=== PATIENT | female | born 1930 | race Caucasian/White ===

== ENCOUNTER 2016-12-04 07:21 | Day surgery (SDC) | payer MEDICARE ==
[~2016-12-04 07:21] MED LIST: FENTANYL 250 MCG/5 ML AMP IV PRN; IV START KIT ONE; LACTATED RINGERS 1,000 ML IV SCH; MIDAZOLAM HCL 5 MG/5 ML VIAL IV PRN
--- NOTE | 2016-12-05 12:37 | SURGPATH ---
[facility] [address] [place] [address] Patient Name: ROSA FONSECA MR#: [id number] : 1930 Gender: F Specimen #: [id number] Collected: 12/04/2016 Received: 12/04/2016 Reported: 12/05/2016 Submitting Phys: CINTHIA IRVING Copy To Phys: [facility] AMEENA YANCEY Clinical History / Pre-Operative Diagnosis: Abnormal CAT scan; periumbilical pain; change in bowel pattern; history of polypectomy; rule out CA Specimen Source / Surgical Procedure Performed: DISTAL TRANSVERSE COLON MASS BIOPSY HIGH PRIORITY DIAGNOSIS. REQUIRES CLINICAL ATTENTION Interpretation: DISTAL TRANSVERSE COLON, BIOPSY: - ADENOCARCINOMA Electronically Signed Out Anabel Nielson M.D. Gross Description: The specimen is received in a formalin filled container labeled with the patient's name and "biopsy of distal transverse colon mass". Six pink biopsies are 0.2-0.4 cm. Totally embedded in one cassette. Moise Alves PSholaAShola Microscopic Description: Sections show multiple fragments of colonic mucosa. There are areas of surface high-grade dysplasia and one fragment shows infiltrative atypical glands and small nests of cells with a surrounding desmoplastic stroma, representing invasive adenocarcinoma. 1: [id number] C18.4
--- NOTE | 2016-12-06 07:34 | PROCNOTE ---
Brigida Pinon : 1930 DATE: 12/06/2016 This 86-year-old female patient within the practice of Dr. James Anna underwent colonoscopy on December 04 for progressive incomplete evacuation with defecation and periumbilical pain prior to defecation and a CAT scan showing irregularities of the sigmoid colon and potential intraabdominal adenopathy. The colonoscopy on December 04 demonstrated an obstructing lesion in the mid transverse colon. The proximal colon could not be seen because of this. 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 The patient has been contacted and informed as to these results. A surgical referral is recommended and she agrees. The patient is being sent to Dr. Jan Lora. Medical follow up will be by Dr. James Hill. JOB: [id number] CC: Dr. James Lora
== END 2016-12-04 09:23 | disposition home or self-care (01) ==
LOC: SDC 07:21
PROVIDERS: ATTEND Internal Medicine Gastroenterology
PROC: 0DBL8ZX Excision of Transverse Colon, Via Natural or Artificial Opening Endoscopic, Diagnostic (ICD-10-PCS; principal; 2016-12-04)
DX: C18.4 Malignant neoplasm of transverse colon (principal); I10 Essential (primary) hypertension; R12 Heartburn; Z87.891 Personal history of nicotine dependence; Z88.0 Allergy status to penicillin; Z88.1 Allergy status to other antibiotic agents; Z88.8 Allergy status to other drugs, medicaments and biological substances; Z86.010 Personal history of colon polyps
CPT/HCPCS: 45380; J3010; J2250; J7120

== ENCOUNTER 2016-12-13 10:38 | Inpatient (IN) | payer MEDICARE ==
[2017-01-30] MEDS ORDERED: BUPIVACAINE 0.5% W/EPI SDV 30 ML VIAL ONE (08:18)
[2017-01-30] MEDS ORDERED: IV START KIT ONE (08:32)
[2017-01-30] MEDS ORDERED: LACTATED RINGERS 1,000 ML ONE (08:32)
[2017-01-30] MEDS ORDERED: ERTAPENEM SODIUM 1 G in NS 0.9% (MINI-BAG PLUS) 50 ML IV PRN (09:00)
[2017-01-30] MEDS ORDERED: GABAPENTIN 600 MG TABLET ONE (10:09)
[2017-01-30] MEDS ORDERED: CELECOXIB 200 MG CAPSULE ONE (10:09)
[2017-01-30] MEDS ORDERED: ACETAMINOPHEN 500 MG TABLET ONE (10:09)
[2017-01-30] MEDS ORDERED: ROCURONIUM BROMIDE 10 MG/ML DOSE IV ONE ×11 (11:13→13:58)
[2017-01-30] MEDS ORDERED: PROPOFOL 20 ML IV ONE (11:13)
[2017-01-30] MEDS ORDERED: LIDOCAINE 2% (MULTI DOSE) 10 ML VIAL ONE (11:13)
[2017-01-30] MEDS ORDERED: SODIUM CHLORIDE 0.9% 100 ML IV ONE (11:14)
[2017-01-30] MEDS ORDERED: PHENYLEPHRINE 10 MG/1 ML (1%) VIAL ONE (11:14)
[2017-01-30] MEDS ORDERED: FENTANYL 250 MCG/5 ML AMP ONE (11:16)
[2017-01-30] MEDS ORDERED: KETAMINE HCL UD SYRINGE 100 MG/2 ML IV ONE (11:21)
[2017-01-30] MEDS ORDERED: ACETAMINOPHEN 500 MG TABLET PO PRN (11:45)
[2017-01-30] MEDS ORDERED: CELECOXIB 200 MG CAPSULE PO PRN (11:45)
[2017-01-30] MEDS ORDERED: GABAPENTIN 600 MG TABLET PO PRN (11:45)
[2017-01-30] MEDS ORDERED: DEXAMETHASONE SOD PHOS 4 MG/1 ML VIAL ONE (11:58)
[2017-01-30] MEDS ORDERED: EPHEDRINE SULFATE UD SYR 25 MG 25 MG/5 ML SYRINGE IV ONE (11:59)
[2017-01-30] MEDS ORDERED: HYDROMORPHONE HCL 2 MG/ML SYRINGE ONE (13:01)
[2017-01-30] MEDS ORDERED: NEOSTIGMINE METHYLSULFATE 1 MG/ML DOSE ONE (15:30)
[2017-01-30] MEDS ORDERED: GLYCOPYRROLATE 0.2 MG/ML 1ML VIAL ONE (15:30)
[2017-01-30] MEDS ORDERED: ONDANSETRON 4 MG/2ML 2 ML VIAL ONE (15:38)
[2017-01-30] MEDS ORDERED: ONDANSETRON 4 MG/2ML 2 ML VIAL IV PRN ×2 (15:43→18:15)
[2017-01-30] MEDS ORDERED: MEPERIDINE 25 MG/ML SYRINGE IV PRN (15:43)
[2017-01-30] MEDS ORDERED: NALOXONE HCL 0.4 MG/ML VIAL IV PRN (15:43)
[2017-01-30] MEDS ORDERED: HYDRALAZINE HCL 20 MG/1 ML VIAL IV PRN (15:43)
[2017-01-30] MEDS ORDERED: ATROPINE SULFATE 0.4 MG/1 ML VIAL IV PRN (15:43)
[2017-01-30] MEDS ORDERED: LABETALOL HCL 5 MG/ML 20ML VIAL IV PRN (15:43)
[2017-01-30] MEDS ORDERED: PROMETHAZINE HCL 25 MG/ML VIAL IM PRN (15:43)
[2017-01-30] MEDS ORDERED: HYDROMORPHONE HCL 1 MG/ML SYRINGE IV PRN (15:43)
[2017-01-30] MEDS ORDERED: LACTATED RINGERS 1,000 ML IV SCH (15:45)
[2017-01-30] MEDS ORDERED: FENTANYL 100 MCG/2 ML VIAL ONE (17:20)
[2017-01-30] MEDS: FENTANYL 100 MCG/2 ML VIAL IV PRN ×4 (17:21→18:04)
[2017-01-30] MEDS ORDERED: DIPHENHYDRAMINE HCL 25 MG CAPSULE PO PRN (18:15)
[2017-01-30] MEDS ORDERED: BLISTEX LIPSTICK 1 EACH TP PRN (18:15)
[2017-01-30] MEDS ORDERED: MENTHOL/CETYLPYRD 1 EACH LOZENGE PO PRN (18:15)
[2017-01-30] MEDS ORDERED: MORPHINE SULFATE 4 MG/ML SYRINGE IV PRN (18:33)
[2017-01-30] MEDS ORDERED: PUMP TUBING ONE (19:12)
[2017-01-30] MEDS: D5 1/2NS with 20 mEq KCL 1,000 ML IV SCH (19:18)
[2017-01-30] MEDS: MORPHINE SULFATE 2 MG/ML SYRINGE IV PRN ×5 (19:24→23:24)
[2017-01-30 20:32] VITALS: BMI 24.5
[2017-01-30] MEDS: ACETAMINOPHEN 500 MG TABLET PO SCH ×2 (20:46→23:25)
[2017-01-30] MEDS: GABAPENTIN 600 MG TABLET PO SCH ×2 (20:58→23:25)
[2017-01-30] MEDS: PANTOPRAZOLE 40 MG TABLET DR PO SCH (20:59)
[2017-01-30] MEDS: KETOROLAC TROMETHAMINE 30 MG/ML 1 ML VIAL IV PRN (23:25)
[2017-01-31] MEDS ORDERED: SODIUM CHLORIDE 0.9% 500 ML IV SCH ×2 (04:09→08:15)
[2017-01-31] MEDS: MORPHINE SULFATE 2 MG/ML SYRINGE IV PRN (04:40)
[2017-01-31] MEDS: ACETAMINOPHEN 500 MG TABLET PO SCH ×4 (06:10→23:17)
[2017-01-31 06:46] LABS: HEMOGLOBIN 10.9 gm/l (12.0-16.0); MEAN CELL VOLUME 93.9 fl (81.0-99.0); MEAN CORPUSCULAR HEMOGLOBIN 30.1 pg (27.0-31.0); MEAN CORPUSCULAR HGB CONC 32.1 g/dl (33.0-37.0); RED CELL DISTRIBUTION WIDTH 14.3 % (11.5-14.5)
[2017-01-31 07:07] LABS: ALB/GLOB RATIO 1.6 (>1.0); ALBUMIN 2.9 gm/dL (3.5-5.7); CALCIUM 7.7 mg/dL (8.6-10.3)
--- NOTE | 2017-01-31 07:31 | OP ---
Brigida Pinon [id number] DATE OF SURGERY: 01/30/2017 PREOPERATIVE DIAGNOSIS: Sigmoid colon cancer. POSTOPERATIVE DIAGNOSIS: Sigmoid colon cancer. PROCEDURE: Laparoscopic low anterior resection. SURGEON: Jan Lora M.D. DISTRIBUTION ASSOCIATE: Lj. ANESTHESIA: [place], General endotracheal. INDICATION: This is an 86-year-old female who was found to have obstructing colon cancer. It was thought to be in the possible transverse colon. On CT scan it appeared to be in the sigmoid colon. She presents for elective colectomy. She has no evidence of metastatic disease on CT. DESCRIPTION: With informed consent she was taken to the operating room where she was laid supine on the operating room table. General endotracheal anesthetic was administered. Legs were placed in Carlos stirrups. Arms were tucked. Pressure points were padded. A Daniel catheter was placed. The abdomen and peritoneal area were prepped and draped in a usual fashion. Local anesthetic was administered below the umbilicus and a vertical incision was made. We dissected down to the fascia. This was grasped with Selene clamps, divided with curvilinear scissors. Suture of a Vicryl replacing all fascial edges and a Aguilera port was placed. A pneumoperitoneum was created. General survey of the abdomen revealed no evidence of metastatic disease in the liver or peritoneal surfaces. The tumor was not immediately evident. I put some local anesthetic in the right lower quadrant and made an incision. A 12 mm port was placed. We ended up putting a 5 mm port in the suprapubic region. Patient was placed in a steep Trendelenburg position and turned to the right. The small bowel was pulled up and out of the pelvis. There was one area where we had to dissect some small bowel that was adhesed to the right pelvic wall. The mass was not evident in the sigmoid colon. It did appear that the sigmoid colon actually looped on itself a couple of times down into the pelvis most likely from adhesions from prior surgery. I wanted to clearly define where the tumor was before I divided the vascular pedicle. Because of this, I approached the colon from a lateral aspect and mobilized it to the midline using the Ligasure and peanut dissection. This was carried down into the pelvis. There was two basic S-turns that had to be freed up. It appeared that one of the curves was adherent to the reminants of her round ligament or Fallopian tube. This was divided using the Ligasure. Eventually, I decided to exchange the suprapubic port site for a gel port. Local anesthetic was administered in the skin. A transverse pfannenstiel incision was made. Electrocautery was used to divide the subcutaneous fat. Anterior rectus fascia was opened. It appeared that her muscles were actually more to the left than usual because of a prior paramedian incision. I lifted the anterior rectus fascia off of the rectus muscles above and below. I incised the peritoneum entering the peritoneal cavity. The wound retractor part of the port was placed and a gel port placed. Using the hand I could palpate the sigmoid colon and found an area of palpable abnormality where it had made a turn attached to the left round ligament or Fallopian tube. I was more confident that this was the location of her tumor. I actually had to dissect down further to mobilize the distal sigmoid. I actually had to get down below the peritoneal reflection that was quite floppy and distorted because of prior hysterectomy. The vascular pedicle to the sigmoid colon was elevated. I dissected down around the blood vessels. The smaller vessels were divided with Endoclips and divided with scissors. Eventually the larger vascular pedicle was isolated. I was able to identify the ureter posterior and lateral to that. I used an Endo MARK with a vascular load to divide the vascular pedicle. Some additional Endoclips were utilized. I then used the Ligasure to divide the mesentery going down into the pelvis. Again we had to dissect down below the peritoneal reflection to get an adequate distal margin. This was done using the Ligasure. I also used the hand to help elevate the rectosigmoid junction so that I could dissect the mesentery and mesocolon away. Eventually it appeared that we had an adequate distal margin. I choice to actually divide this through the open wound retractor using a contour MARK stapler. This was placed and fired. In doing that I could evaluate through the wound retractor of the mesenteric dissector. I seen no additional mesenteric tissue or lymph nodes to be excised. I chose a site near the junction of the descending and sigmoid colon that appeared to be viable and able to flop down into the pelvis. I placed Asad clamps and then divided that with scissors. In doing that, the specimen was freed up and taken to the back table. I did open up the colon from the open proximal end. I cut through the obstructing tumor. We appeared to have adequate proximal and distal margins, that was handed off to pathology with the distal end labeled as stapled. I replaced the Asad more proximally on the colon. I evaluated the colon and then easily accommodated a 33 EEA sizer. A purse string was placed. The anvil of a 33 EEA stapler was placed and the purse string tightened. From below I evaluated the rectal stump first with a sizer. It appeared that we were down between 10 and 12 cm from the anal verge. The stapler was placed. It was brought out to the rectal stump and the trocar was advanced. This was mated to the anvil, it was brought down to the appropriate level of tension making sure that no pericolic fat got into the anastomosis. We made sure there was no tension or twisting of the colon. Once at the appropriate level of tension the stapler was fired, it was released, and removed. A Asad was placed proximally. The pelvis was filled with fluid. A colonoscope was placed in the rectum and advanced through the anastomosis. With insufflation there was no evidence of air leak within the abdomen. We appeared to have a good complete circumferential anastomosis with no bleeding. The air was suctioned and the scope removed. At the back table I investigated the donuts and found two intact rings of tissue. The pelvis was irrigated. We appeared to have adequate hemostasis. I made sure there was omentum down into the pelvis. The pfannenstiel incision was closed with a 2-0 Vicryl on the peritoneum. The rectus fascia was closed with looped 0 PDS. Vigorous irrigation was employed between all layers. This skin edges were reapproximated with aman. The pneumoperitoneum was recreated. The right lower quadrant port was removed. A bullet was placed. A Waylon Fields suture passer was used to close the fascial defect using an 0 Vicryl suture. In doing so, we had no air leak from the fascial closure. The remaining 5 mm ports were removed. The Aguilera port was removed and the pneumoperitoneum was evacuated. The infraumbilical fascial defect was closed with figure of eight sutures of 0 Vicryl. All wounds were irrigated. Skin edges were reapproximated with aman. Sterile bandages were applied. A binder was applied. She tolerated the procedure and was taken to the recovery room in stable condition. Note was made that needle, instrument, and lap counts were reported as correct at the time of closure. JOB: [id number] CC: Dr. Jmaes Hill
[2017-01-31] MEDS ORDERED: SODIUM CHLORIDE 0.9% 500 ML ONE (08:08)
--- NOTE | 2017-01-31 08:46 | PDOC43 ---
- Subjective Subjective: Reports Pain Tolerable, Denies Nausea - Objective Vital Signs Temperature 98.2 F 01/31/17 07:05 Pulse Rate 80 01/31/17 07:05 Respiratory Rate 16 01/31/17 08:00 Blood Pressure 76/43 01/31/17 07:05 O2 Saturation by Pulse Oximetry 94 01/31/17 07:05 Oxygen Delivery Method Room Air Oxygen Flow Rate 0 Laboratory 01/31/17 06:15 01/31/17 06:15 01/31/17 01/31/17 08:12 06:15 RBC 3.62 L MCHC 32.1 L Estimated GFR 47 L POC Capillary Glucose 104 H Calcium 7.7 L Total Protein 4.7 L Albumin 2.9 L Globulin 1.8 L Active Medication Orders Category Date Time Status Acetaminophen [Tylenol] Med 01/30/17 18:15 Active 1,000 mg PO Q6H Alprazolam [Xanax] Med 01/30/17 18:15 Active 0.25 mg PO BEDTIME PRN Amlodipine Besylate [Norvasc] Med 01/31/17 09:00 Active 5 mg PO DAILY Benazepril HCl [Lotensin] Med 01/31/17 09:00 Active 20 mg PO DAILY D5NS with 20mEq KCL [D5NS with 20 mEq KCL] 1,000 ml Med 01/31/17 08:45 Ordered IV 100 mls/hr Diphenhydramine HCl [Benadryl] Med 01/30/17 18:15 Active 25 - 50 mg PO Q6H PRN Enoxaparin Sodium [Lovenox] Med 01/31/17 14:28 Active 40 mg SUB-Q Q24H Gabapentin [Neurontin] Med 01/30/17 21:00 Active 600 mg PO TID Ketorolac Tromethamine [Toradol] Med 01/30/17 18:15 Active 15 mg IV Q6H PRN Lip [place] [Blistex] Med 01/30/17 18:15 Active 1 each TP PRN PRN Magnesium/Al Hydrox/Simeth [Maalox Plus] Med 01/30/17 18:15 Active 30 ml PO Q4H PRN Menthol/Cetylpyridinium [Cepacol] Med 01/30/17 18:15 Active 1 each PO PRN PRN Morphine Sulfate Med 04/11/17 18:15 Active 1 - 4 mg IV Q1H PRN Morphine Sulfate Med 01/30/17 18:33 Active 1 - 4 mg IV Q1H PRN Ondansetron 4 mg/2ml Vial [Zofran] Med 01/30/17 18:15 Active 4 mg IV Q4H PRN Oxycodone HCl [Roxicodone] Med 01/30/17 18:15 Active 5 - 10 mg PO Q4H PRN Pantoprazole Sodium [Protonix] Med 01/30/17 21:00 Active 40 mg PO BID Sodium Chloride 0.9% 500 ml Med 01/31/17 08:15 Active IV 500 mls/hr Sodium Chloride 0.9% Flush [Normal Saline 10ml Flush] Med 01/30/17 18:15 Active 10 - 50 ml IV PRN PRN Sodium Chloride 0.9% Flush [Normal Saline 10ml Flush] Med 01/31/17 09:00 Active 10 ml IV Q8HR Intake and Output 01/30/17 01/31/17 02/01/17 06:59 06:59 06:59 Intake Total 4236 Output Total 605 Balance 3631 General: Alert, Oriented x3 Abdomen: Soft, Non-Distended Wound: Dressing Clean/Dry/Intact - Assessment/ Plan (1) Colon cancer Qualifiers: Colon location: sigmoid Qualifier Code: (C18.7) Malignant neoplasm of sigmoid colon Status: AcuteAssessment/ Plan: Continue clear liquids. Ambulate if able. Patient has issues with urinary frequency and frequent UTI. I advised that we remove the a catheter, but she wants to keep for now. Depends some on blood pressure. (2) Hypotension Status: AcuteAssessment/ Plan: Fluid bolus. Hold hypertensive meds. (3) Hyponatremia Status: AcuteAssessment/ Plan: Saline bolus. Change to NS in IVF.
[2017-01-31] MEDS: PANTOPRAZOLE 40 MG TABLET DR PO SCH ×2 (09:33→20:04)
[2017-01-31] MEDS: GABAPENTIN 600 MG TABLET PO SCH ×3 (09:33→20:04)
[2017-01-31] MEDS ORDERED: IV START KIT ONE (10:02)
[2017-01-31] MEDS ORDERED: SODIUM CHLORIDE 0.9% FLUSH 10 ML ONE (10:02)
[2017-01-31] MEDS: D5 1/2NS with 20 mEq KCL 1,000 ML IV SCH (10:21)
[2017-01-31] MEDS: D5NS with 20mEq KCL 1,000 ML IV SCH ×2 (10:23→19:20)
[2017-01-31] MEDS: KETOROLAC TROMETHAMINE 30 MG/ML 1 ML VIAL IV PRN ×2 (10:28→16:13)
[2017-01-31] MEDS: AMLODIPINE BESYLATE 5 MG TABLET PO SCH (11:42)
[2017-01-31] MEDS: BENAZEPRIL HCL 10 MG TABLET PO SCH (11:42)
[2017-01-31] MEDS: ENOXAPARIN SODIUM 40 MG/0.4 ML SYRINGE SUB-Q SCH (15:26)
[2017-01-31] MEDS: MAG HYDROX/AL HYDROX/SIMETH 30 ML UDCUP PO PRN (19:18)
[2017-01-31] MEDS: ALPRAZOLAM 0.25 MG TABLET PO PRN (20:04)
[2017-01-31] MEDS: OXYCODONE HCL 5 MG TABLET PO PRN (23:06)
[2017-02-01] MEDS: D5NS with 20mEq KCL 1,000 ML IV SCH ×3 (05:12→20:37)
[2017-02-01 05:53] LABS: HEMATOCRIT 30.2 % (37.0-47.0); HEMOGLOBIN 9.4 gm/l (12.0-16.0); MEAN CELL VOLUME 95.3 fl (81.0-99.0); MEAN CORPUSCULAR HEMOGLOBIN 29.7 pg (27.0-31.0); MEAN CORPUSCULAR HGB CONC 31.1 g/dl (33.0-37.0); RED CELL DISTRIBUTION WIDTH 14.6 % (11.5-14.5)
[2017-02-01] MEDS: ACETAMINOPHEN 500 MG TABLET PO SCH ×3 (05:59→20:29)
[2017-02-01] MEDS: OXYCODONE HCL 5 MG TABLET PO PRN ×5 (05:59→20:30)
[2017-02-01 06:01] LABS: CALCIUM 7.5 mg/dL (8.6-10.3)
--- NOTE | 2017-02-01 07:54 | PDOC43 ---
- Subjective Subjective: Reports Flatus, Reports Pain Tolerable, Reports Bowel Movement, Denies Nausea, Denies Fever - Objective Vital Signs Temperature 97.6 F 02/01/17 07:10 Pulse Rate 80 02/01/17 07:10 Respiratory Rate 18 02/01/17 07:10 Blood Pressure 92/49 02/01/17 07:10 O2 Saturation by Pulse Oximetry 98 02/01/17 07:10 Oxygen Delivery Method Room Air Oxygen Flow Rate 0 Laboratory 02/01/17 05:20 02/01/17 05:20 02/01/17 01/31/17 05:20 08:12 RBC 3.17 L MCHC 31.1 L RDW 14.6 H Anion Gap 7 L Estimated GFR 59 L POC Capillary Glucose 104 H Calcium 7.5 L Active Medication Orders Category Date Time Status Acetaminophen [Tylenol] Med 01/30/17 18:15 Active 1,000 mg PO Q6H Alprazolam [Xanax] Med 01/30/17 18:15 Active 0.25 mg PO BEDTIME PRN Amlodipine Besylate [Norvasc] Med 01/31/17 09:00 Active 5 mg PO DAILY Benazepril HCl [Lotensin] Med 01/31/17 09:00 Active 20 mg PO DAILY D5NS with 20mEq KCL [D5NS with 20 mEq KCL] 1,000 ml Med 02/01/17 07:42 Ordered IV 50 mls/hr Diphenhydramine HCl [Benadryl] Med 01/30/17 18:15 Active 25 - 50 mg PO Q6H PRN Enoxaparin Sodium [Lovenox] Med 01/31/17 14:28 Active 40 mg SUB-Q Q24H Gabapentin [Neurontin] Med 01/30/17 21:00 Active 600 mg PO TID Ketorolac Tromethamine [Toradol] Med 01/30/17 18:15 Active 15 mg IV Q6H PRN Lip Jamul [Blistex] Med 01/30/17 18:15 Active 1 each TP PRN PRN Magnesium/Al Hydrox/Simeth [Maalox Plus] Med 01/30/17 18:15 Active 30 ml PO Q4H PRN Menthol/Cetylpyridinium [Cepacol] Med 01/30/17 18:15 Active 1 each PO PRN PRN Morphine Sulfate Med 01/30/17 18:15 Active 1 - 4 mg IV Q1H PRN Morphine Sulfate Med 01/30/17 18:33 Active 1 - 4 mg IV Q1H PRN Ondansetron 4 mg/2ml Vial [Zofran] Med 01/30/17 18:15 Active 4 mg IV Q4H PRN Oxycodone HCl [Roxicodone] Med 01/30/17 18:15 Active 5 - 10 mg PO Q4H PRN Pantoprazole Sodium [Protonix] Med 01/30/17 21:00 Active 40 mg PO BID Sodium Chloride 0.9% Flush [Normal Saline 10ml Flush] Med 01/30/17 18:15 Active 10 - 50 ml IV PRN PRN Sodium Chloride 0.9% Flush [Normal Saline 10ml Flush] Med 01/31/17 09:00 Active 10 ml IV Q8HR Intake and Output 01/31/17 02/01/17 02/02/17 06:59 06:59 06:59 Intake Total 4236 5414 Output Total 605 1900 Balance 3631 3514 General: Alert, Oriented x3 Abdomen: Soft, Tenderness (incisional), Mild Distention Psych/Mental Status: Normal Affect, No Agitated - Assessment/ Plan (1) Colon cancer Qualifiers: Colon location: sigmoid Qualifier Code: (C18.7) Malignant neoplasm of sigmoid colon Status: AcuteAssessment/ Plan: Advance diet. DC garza. Decrease IVF. Continue lovenox. Follow serial hgb. (2) Hypotension Status: AcuteAssessment/ Plan: Assymptomatic. Better today. Decrease IVF. Hold hypertensive meds. (3) Hyponatremia Status: AcuteAssessment/ Plan: Better. NS in IVF. (4) Anemia Qualifiers: Anemia type: other cause Other causes of anemia: other cause, not classified Qualifier Code: (D64.89) Other specified anemias Status: AcuteAssessment/ Plan: Related to dilution. Some operative blood loss.
[2017-02-01] MEDS: BENAZEPRIL HCL 10 MG TABLET PO SCH (09:59)
[2017-02-01] MEDS: AMLODIPINE BESYLATE 5 MG TABLET PO SCH (10:00)
[2017-02-01] MEDS: PANTOPRAZOLE 40 MG TABLET DR PO SCH ×2 (10:07→20:29)
[2017-02-01] MEDS: GABAPENTIN 600 MG TABLET PO SCH ×3 (10:07→20:30)
[2017-02-01] MEDS: KETOROLAC TROMETHAMINE 30 MG/ML 1 ML VIAL IV PRN (11:10)
[2017-02-01] MEDS: MAG HYDROX/AL HYDROX/SIMETH 30 ML UDCUP PO PRN (14:59)
[2017-02-01] MEDS: ENOXAPARIN SODIUM 40 MG/0.4 ML SYRINGE SUB-Q SCH (15:01)
[2017-02-02] MEDS: ALPRAZOLAM 0.25 MG TABLET PO PRN (00:38)
[2017-02-02] MEDS: ACETAMINOPHEN 500 MG TABLET PO SCH ×3 (02:59→11:45)
[2017-02-02 05:43] LABS: HEMATOCRIT 30.2 % (37.0-47.0); HEMOGLOBIN 9.7 gm/l (12.0-16.0); MEAN CELL VOLUME 94.1 fl (81.0-99.0); MEAN CORPUSCULAR HEMOGLOBIN 30.2 pg (27.0-31.0); MEAN CORPUSCULAR HGB CONC 32.1 g/dl (33.0-37.0); RED CELL DISTRIBUTION WIDTH 14.6 % (11.5-14.5)
[2017-02-02 06:06] LABS: CALCIUM 8.6 mg/dL (8.6-10.3)
[2017-02-02] MEDS: OXYCODONE HCL 5 MG TABLET PO PRN (08:36)
[2017-02-02] MEDS: PANTOPRAZOLE 40 MG TABLET DR PO SCH (08:36)
[2017-02-02] MEDS: AMLODIPINE BESYLATE 5 MG TABLET PO SCH (08:36)
[2017-02-02] MEDS: GABAPENTIN 600 MG TABLET PO SCH (08:36)
[2017-02-02] MEDS: BENAZEPRIL HCL 10 MG TABLET PO SCH (08:36)
[2017-02-02] MEDS: D5NS with 20mEq KCL 1,000 ML IV SCH (09:26)
[2017-02-02 11:25] VITALS: BP 128/72
--- NOTE | 2017-02-05 13:30 | SURGPATH ---
[facility], [facility]. [address] [place] [id number] Patient Name: ROSA FONSECA MR#: [id number] : 1930 Gender: F Specimen #: [id number] Collected: 01/30/2017 Received: 02/01/2017 Reported: 02/05/2017 Submitting Phys: GALA AGUIRRE Copy To Phys: [facility] Addendum Present Clinical History / Pre-Operative Diagnosis: Sigmoid colon cancer Specimen Source / Surgical Procedure Performed: Sigmoid colon-resection Interpretation: SIGMOID COLON, RESECTION: - MODERATELY DIFFERENTIATED ADENOCARCINOMA - STAGE: pT3 N1b - SEE SYNOPTIC REPORT COLORECTAL CANCER CASE SUMMARY: SPECIMEN: Sigmoid colon PROCEDURE: Sigmoidectomy SPECIMEN LENGTH: 22 cm TUMOR SITE: Sigmoid colon TUMOR SIZE: 3.5 cm long x 2.5 cm wide x 1.0 cm deep MACROSCOPIC TUMOR PERFORATION: Absent HISTOLOGIC TYPE: Adenocarcinoma HISTOLOGIC GRADE: Low-grade (well to moderately differentiated) MICROSCOPIC TUMOR EXTENSION: Tumor invades through the muscularis propria into the subserosal adipose tissue MARGINS: Proximal Margin: Uninvolved, 9 cm Distal Margin: Uninvolved, 10 cm Circumferential/Radial Margin: Uninvolved, 10 cm TREATMENT EFFECT (NEOADJUVANT THERAPY): No prior treatment LYMPHATIC INVASION: Present LARGE VESSEL INVASION: Not identified PERINEURAL INVASION: Not identified TUMOR DEPOSITS (DISCONTINUOUS EXTRAMURAL EXTENSION): Not identified TYPE OF POLYP IN WHICH INVASIVE CARCINOMA AROSE: Indeterminate TNM DESCRIPTORS: Not applicable PRIMARY TUMOR (pT): pT3: Tumor invades through the muscularis propria into pericolorectal tissues REGIONAL LYMPH NODES (pN): pN1b: Metastasis in 2 to 3 regional lymph nodes Number involved / Number examined: 3/12 DISTANT METASTASIS (pM): Not applicable ANCILLARY STUDIES: MMR testing by IHC is pending and will be reported separately. Electronically Signed Out Anabel Nielson M.D. Addendum Date Reported: 02/05/2017 Signed Out Addendum Diagnosis MISMATCH REPAIR (MMR) PROTEIN EVALUATION BY IMMUNOHISTOCHEMISTRY: - MLH1 NUCLEAR EXPRESSION: INTACT - MSH2 NUCLEAR EXPRESSION: INTACT - MSH6 NUCLEAR EXPRESSION: INTACT - PMS2 NUCLEAR EXPRESSION: INTACT INTERPRETATION: - NO LOSS OF NUCLEAR EXPRESSION OF MMR PROTEINS - LOW PROBABILITY OF MITCHELL SYNDROME OR MICROSATELLITE INSTABILITY RECOMMENDATION: - NO SPECIFIC FOLLOWUP RECOMMENDED Mismatch repair proteins are the products of four genes responsible for DNA mismatch repair. Inactivation of these genes may occur by germline mutation (i.e. Mitchell Syndrome) or sporadic inactivation. Loss of gene expression has a high sensitivity (90-95%) and specificity (100%) for the detection of microsatellite unstable cancers (MSI). Intact protein expression essentially excludes microsatellite unstable tumors or Mitchell Syndrome. However, intact protein expression does not exclude all types of hereditary cancer. If a strong family history of colorectal or other malignancies is present, genetic counseling may be indicated. Positive BRAF mutation analysis (if performed) is indicative of sporadic inactivation and virtually excludes Mitchell Syndrome. [facility] genetic counseling may be contacted at [phone]. (Immunohistochemical analysis is performed using standard methods on a Leica automated instrument using paraffin embedded tumor. Primary anti-sera react with MLH1, MSH2, MSH6, and PMS2 (Clones ES05, 25D12, PU29, M0R4G, Novocastra). Analyte-specific reagents (ASR) are used in many laboratory tests necessary for standard medical care and generally do not require FDA approval. This test was developed and its performance characteristics determined by [facility]. It has not been cleared or approved by the U.S. Food and Drug Administration. [facility] is certified under the Clinical Laboratory Improvement Amendments of 1988 as qualified to perform high complexity clinical laboratory testing. All internal (nuclear) and external controls stain as expected.) [facility]/02/05/2017 Electronically Signed Out Pietro Fuller M.D. Gross Description: The specimen is received in formalin labeled with the patient's name and "sigmoid colon". SPECIMEN: Organ/tissue received: Sigmoid colon Fixation: Formalin Number of pieces: One Dimensions: 22 x 3.0 x 3.0 cm Orientation (If indicated): Proximal margin is open. TUMOR: Location: Central specimen, 65% bowel circumference Dimensions/description: The exophytic 3.5 x 2.5 cm mass has serpentine heaped up edges and a flat to granular center. Distance from margins: Proximal: 9 cm Distal: 10 cm Radial/Vascular: 10 cm Estimated depth of invasion: Grossly appears to extend through the colon wall and possibly minimally into the underlying pericolonic fat. DESCRIPTION OF UNINVOLVED COLON/RECTUM AND ADDITIONAL PATHOLOGIC FEATURES: Serosa: Slightly indurated around the mass without identifiable tumor Mucosa: The remaining mucosa is boo, folded, and unremarkable. Mesorectum: Not included, above peritoneal reflection Other: REGIONAL LYMPH NODES: Dissect-Aid was used. A few possible lymph nodes are identified which are up to 0.6 cm. METASTASIS TO OTHER ORGANS OR STRUCTURES (M1): TISSUE SUBMITTED FOR MICROSCOPIC EVALUATION: A. en face open proximal margin B. en face stapled distal margin C. vascular margin D-G. mass H. possible lymph nodes x4 I. possible lymph nodes x5 J. possible lymph nodes x5 RUBY Nettles Microscopic Description: Sections from the colon show invasive adenocarcinoma. The tumor grows through the muscularis and into the surrounding adipose tissue. 12 lymph nodes are examined. There is metastatic carcinoma in three of the lymph nodes. 1: 96317, G8721, 17138, 84428(3 C18.7
== END 2017-02-02 14:35 | DRG 330 ==
LOC: OR 01-30 08:39 → MS 01-30 18:39
PROVIDERS: ADMIT Surgery; ATTEND Surgery
PROC: 0DTN4ZZ Resection of Sigmoid Colon, Percutaneous Endoscopic Approach (ICD-10-PCS; principal; 2017-01-30)
DX: C18.7 Malignant neoplasm of sigmoid colon (principal); E87.1 Hypo-osmolality and hyponatremia; Z87.891 Personal history of nicotine dependence; I95.9 Hypotension, unspecified; D64.89 Other specified anemias

== ENCOUNTER 2017-02-04 19:30 | Inpatient (IN) | payer MEDICARE ==
[2017-02-04] MEDS ORDERED: IOPAMIDOL 370 (76%) IV.SOLN 150 ML IV ONE (19:31)
[2017-02-04] MEDS ORDERED: LACTATED RINGERS 1,000 ML ONE (19:55)
[2017-02-04 20:25] LABS: ABSOLUTE NEUTROPHIL COUNT 5.3 K/mm3 (1.8-7.7); BASO % 0.3 % (0.2-1.0); EOS # 0.3 (0.0-0.5); HEMATOCRIT 31.8 % (37.0-47.0); HEMOGLOBIN 10.5 gm/l (12.0-16.0); IMM NEUT% 0.5 % (0-1); LYMPH # 1.1 (1.0-4.8); LYMPH % 13.3 % (15-45); MEAN CELL VOLUME 89.8 fl (81.0-99.0); MEAN CORPUSCULAR HEMOGLOBIN 29.7 pg (27.0-31.0); MEAN PLATELET VOLUME 9.2 fl (7.4-10.4); MONO # 1.2 (0.0-0.8); MONO % 15.2 % (4-12); NEUT % 66.7 % (43-75); PLATELET COUNT 398 K/mm3 (130-400); RED CELL DISTRIBUTION WIDTH 14.3 % (11.5-14.5)
[2017-02-04 20:40] LABS: ALB/GLOB RATIO 1.2 (>1.0); ALBUMIN 3.1 gm/dL (3.5-5.7)
[2017-02-04 20:41] LABS: C-REACTIVE PROTEIN 6.7 mg/dl (<1.0)
[2017-02-04 22:59] VITALS: BMI 26.3
[2017-02-05] MEDS ORDERED: LORAZEPAM 2 MG/ML 1ML SDV IV PRN (00:01)
[2017-02-05] MEDS ORDERED: DIPHENHYDRAMINE HCL 50 MG/1 ML VIAL IV PRN (00:02)
[2017-02-05] MEDS ORDERED: ACETAMINOPHEN 650 MG SUP PR PRN (00:02)
[2017-02-05] MEDS ORDERED: SODIUM CHLORIDE 0.9% 100 ML IV PRN (00:02)
[2017-02-05] MEDS ORDERED: MENTHOL/CETYLPYRD 1 EACH LOZENGE PO PRN (00:02)
[2017-02-05] MEDS ORDERED: BISACODYL 10 MG SUP PR PRN (00:02)
[2017-02-05] MEDS ORDERED: BLISTEX LIPSTICK 1 EACH TP PRN (00:02)
[2017-02-05] MEDS ORDERED: PUMP TUBING ONE (00:24)
[2017-02-05] MEDS: FENTANYL 100 MCG/2 ML VIAL IV PRN ×3 (00:37→06:11)
[2017-02-05] MEDS: LACTATED RINGERS 1,000 ML IV SCH ×3 (00:38→20:55)
[2017-02-05] MEDS: FAMOTIDINE 10 MG/ML 2ML VIAL IV SCH ×3 (00:40→20:55)
[2017-02-05] MEDS: ENOXAPARIN SODIUM 40 MG/0.4 ML SYRINGE SUB-Q SCH ×2 (00:45→20:55)
[2017-02-05] MEDS ORDERED: IV START KIT ONE (02:19)
[2017-02-05 03:26] LABS: URINE BILIRUBIN NEGATIVE (NEGATIVE); URINE BLOOD NEGATIVE (NEGATIVE); URINE GLUCOSE (UA) NEGATIVE (NEGATIVE); URINE LEUKOCYTE ESTERASE NEGATIVE (NEGATIVE); URINE NITRITE NEGATIVE (NEGATIVE); URINE PROTEIN NEGATIVE (NEGATIVE); URINE UROBILINOGEN NORMAL (0-1 mg/dl)
[2017-02-05 03:28] LABS: URINE APPEARANCE CLEAR; URINE COLOR YELLOW
[2017-02-05 07:54] LABS: ABSOLUTE NEUTROPHIL COUNT 5.2 K/mm3 (1.8-7.7); BASO % 0.4 % (0.2-1.0); EOS # 0.3 (0.0-0.5); EOS % 3.4 % (0.9-2.9); HEMATOCRIT 33.1 % (37.0-47.0); HEMOGLOBIN 10.7 gm/l (12.0-16.0); IMM NEUT # 0.1 K/mm3 (0-0.2); IMM NEUT% 0.6 % (0-1); LYMPH # 1.1 (1.0-4.8); LYMPH % 14.5 % (15-45); MEAN CELL VOLUME 89.9 fl (81.0-99.0); MEAN CORPUSCULAR HEMOGLOBIN 29.1 pg (27.0-31.0); MEAN CORPUSCULAR HGB CONC 32.3 g/dl (33.0-37.0); MEAN PLATELET VOLUME 8.9 fl (7.4-10.4); MONO # 1.2 (0.0-0.8); MONO % 15.5 % (4-12); NEUT % 65.6 % (43-75); PLATELET COUNT 404 K/mm3 (130-400); RED CELL DISTRIBUTION WIDTH 14.3 % (11.5-14.5)
[2017-02-05 08:13] LABS: CALCIUM 8.8 mg/dL (8.6-10.3); MAGNESIUM 1.5 mg/dL (1.9-2.7)
--- NOTE | 2017-02-05 08:15 | HP ---
ROSA PINON : 1930 DATE OF ADMISSION: February 04, 2017 CHIEF COMPLAINT: Diarrhea, abdominal pain and poor appetite. HISTORY OF PRESENT ILLNESS: Ms. Pinon is an 86-year-old female with relatively benign past medical history who had a hemicolectomy for sigmoid adenocarcinoma this past Sunday. She was discharged from the hospital after achieving bowel movement and tolerating her diet on . She was discharged to assisted for rehabilitation but spent only one night there. She was not happy with the accommodations and returned home on Sunday with her [id number] coming over to stay with her. From the time of discharge, she had increasing abdominal pain, diminished appetite and felt poorly. She reports diarrhea all day yesterday which was Sunday followed by no bowel movement as late as today and continued absence of appetite. She is acute complaining of diffuse abdominal pain and distention. REVIEW OF SYSTEMS: As per History of Present Illness, no fever, chills or rigors, hematochezia or melena. No emesis or nausea. All other systems reviewed and acutely negative. PAST MEDICAL AND PAST SURGICAL HISTORY: 1. Hypertension. 2. Heartburn. 3. Anxiety. 4. Total abdominal hysterectomy. 5. Appendectomy. 6. Cholecystectomy. ALLERGIES TO MEDICATIONS: 1. ERYTHROMYCIN. 2. PENICILLIN. 3. PAXIL. CURRENT MEDICATIONS: 1. Xanax 0.25 mg. 2. Oxycodone 5 to 10 mg every four hours as needed. 3. Omeprazole 40 mg daily. 4. [place] 3 fatty acid fish oil. 5. Diclofenac 50 mg twice daily. 6. Calcium with vitamin D3 twice daily. 7. Lotrel 5-20 daily. 8. Multivitamin with iron daily. SOCIAL HISTORY: The patient is a former smoker, nonsmoker, nondrinker currently who lives independently under normal circumstances. She is DO NOT RESUSCITATE. FAMILY HISTORY: Noncontributory to this admission. PERTINENT LABS AND DIAGNOSTIC STUDIES: CT abdomen and pelvis, CMP and CBC with differential are reviewed. PHYSICAL EXAM: VITAL SIGNS: Blood pressure 150/85, heart rate 100, temperature 97.9, O2 sat 96% on room air, respiratory rate is 15. GENERAL: This is an elderly female in no acute distress. She is alert and oriented times three. HEENT: Normocephalic, atraumatic. Extraocular movements intact. Pupils equal, round, and reactive to light and accommodation. Oropharynx is clear. CARDIOVASCULAR: Regular rate and rhythm. PULMONARY : Clear to auscultation bilaterally. No wheezes, rhonchi or crackles. ABDOMEN: Is mildly distended, soft with mild tenderness to deep palpation diffusely and hypoactive bowel sounds. Surgical incisions are clean, dry and intact with no signs of infection or dehiscence. EXTREMITIES: No clubbing, cyanosis or edema. PSYCHIATRIC: Patient is agitated, appropriate and cooperative. ASSESSMENT AND PLAN: 1. Postoperative ileus. 2. Postoperative anemia. 3. Hypernatremia 4. Hypovolemia as well as pain and opioid use. 5. Early stage colon cancer status post colectomy. 6. Anxiety. 7. Gastroesophageal reflux disease. 8. Abdominal pain. ASSESSMENT AND PLAN: Patient will be admitted to observation with bowel rest and nothing by mouth status and pain management with Fentanyl. We will give her IV fluids with lactated Ringers and repeat labs in the morning. Dr. Lora of surgery is aware of her admission and will likely check on her tomorrow but there is no acute need for surgical input at this time. We will give her IV famotidine for gastric protection while she is nothing by mouth and IV lorazepam for anxiety while she is nothing by mouth. Patient's DO NOT RESUSCITATE status has been reflected in the chart, and we anticipate a short stay hopefully. We will be prepared to escalate care should she develop a bowel obstruction and need nasogastric tube placement.
--- NOTE | 2017-02-05 08:58 | CT ---
Exam Type: ABD/PELVIS W/ CON Date and Time: 02/04/2017 7:58 PM Clinical information: History of laparoscopic partial colectomy approximately one week ago. Diarrhea. Right lower quadrant pain. Comparison: CT abdomen pelvis with contrast 11/21/2016 Technique: Contiguous axial 4 mm images were obtained from the lung bases through the pelvis after the uneventful IV administration of 100 cc of Isovue-370. Sagittal and coronal reformations with high resolution lung algorithm images were also obtained at this time. CT DI: 14.1 DLP 733.9 FINDINGS: Lung base : Dependent and atelectatic changes are present at the lung bases. Visualized heart:There is no pericardial effusion. LIVER: Subcentimeter hypodensity is present within the lateral segment left lobe of the liver, too small to characterize. Otherwise liver is unremarkable. BILE DUCTS: Common bile duct is mildly dilated. GALLBLADDER: Surgically absent. PANCREAS: within normal limits. SPLEEN: within normal limits. ADRENALS: The right adrenal gland lesion is not as well-visualized on today's examination, though is possibly seen on image 30. KIDNEYS: 2 small to characterize probable cysts are again noted. Stomach and small BOWEL: Multiple dilated fluid-filled loops of small bowel with air-fluid levels worrisome for obstruction or ileus. Possible transition zone is present in the right lower quadrant. Large bowel: Air and stool are noted within the large bowel. New large bowel anastomosis is present within the rectosigmoid region. Small amount of fat stranding is noted in this area likely relating to the recent procedure. LYMPH NODES: No enlarged mesenteric lymph nodes. PERITONEUM: Small amount of pelvic free fluid which could relate to the procedure though postoperative leak is possible. No enhancement to the fluid. Fluid tracks along the paracolic gutters the level of Morison's pouch. Small amount of free air is identified within the anterior pelvis, could relate to the patient's recent surgery. VESSELS: Mild aspect disease. RETROPERITONEUM: within normal limits. ABDOMINAL WALL: Postsurgical subcutaneous soft tissue gas, and surgical staple lines. Bladder: Normal Uterus and adnexa: Surgically absent. BONES: Post surgical change from right total hip arthroplasty. Multilevel degenerative changes of the spine. Diffuse osteopenia. No lytic or sclerotic lesions. Grade 1 anterolisthesis of L4 on. IMPRESSION: Small amount of free air is identified within the pelvis likely relating to the patient's recent surgery. Free fluid is also present, also likely relating to the surgery. Postoperative anastomosis within the colon with some probable postoperative pericolonic fat stranding. Postoperative obstruction versus ileus is identified with possible transition zone in the right lower quadrant. Other incidental findings as above. Preliminary report was provided by Nancy at approximately 2132 hours on 02/05/2017.
[2017-02-05] MEDS: TRAMADOL HCL 50 MG TABLET PO PRN ×3 (09:59→20:55)
[2017-02-06] MEDS: TRAMADOL HCL 50 MG TABLET PO PRN ×4 (04:02→20:33)
[2017-02-06] MEDS: LACTATED RINGERS 1,000 ML IV SCH (06:10)
[2017-02-06 06:43] LABS: ABSOLUTE NEUTROPHIL COUNT 5.2 K/mm3 (1.8-7.7); BASO % 0.2 % (0.2-1.0); EOS # 0.4 (0.0-0.5); EOS % 4.8 % (0.9-2.9); HEMOGLOBIN 10.1 gm/l (12.0-16.0); IMM NEUT # 0.1 K/mm3 (0-0.2); LYMPH # 1.4 (1.0-4.8); LYMPH % 17.1 % (15-45); MEAN CELL VOLUME 88.8 fl (81.0-99.0); MEAN CORPUSCULAR HEMOGLOBIN 29.9 pg (27.0-31.0); MEAN CORPUSCULAR HGB CONC 33.7 g/dl (33.0-37.0); MONO # 1.2 (0.0-0.8); MONO % 14.3 % (4-12); NEUT % 62.6 % (43-75); PLATELET COUNT 405 K/mm3 (130-400); RED CELL DISTRIBUTION WIDTH 14.2 % (11.5-14.5)
[2017-02-06 07:04] LABS: ALB/GLOB RATIO 1.1 (>1.0); ALBUMIN 2.7 gm/dL (3.5-5.7); CALCIUM 8.5 mg/dL (8.6-10.3)
[2017-02-06] MEDS: FAMOTIDINE 10 MG/ML 2ML VIAL IV SCH ×2 (09:22→20:32)
[2017-02-06] MEDS ORDERED: BENAZEPRIL PO SCH (09:30)
[2017-02-06] MEDS ORDERED: [UNRECOGNIZED DRUG - OTHER] PO SCH (09:30)
[2017-02-06] MEDS ORDERED: AMLODIPINE BESYLATE PO SCH (09:30)
[2017-02-06] MEDS: AMLODIPINE BESYLATE 5 MG TABLET PO SCH (10:02)
[2017-02-06] MEDS: BENAZEPRIL HCL 10 MG TABLET PO SCH (10:02)
--- NOTE | 2017-02-06 10:47 | RAD ---
ABDOMEN OR KUB COMPARISON: CT abdomen and pelvis, 02/04/2017 HISTORY: 86-year-old female with postoperative ileus versus bowel obstruction. FINDINGS: View: Supine abdomen. Bowel gas pattern: Gas is present in the distended transverse colon and in the central small intestine. Organomegaly: None. Soft tissue calcification: None. Surgical clips: Right upper quadrant, to the left of the lower lumbar spine, and in the lower midline pelvis, and in the anterior abdominal and pelvic wall there are skin aman. Bones: Severe degenerative changes in the lumbar spine. Right hip replacement. IMPRESSION: Gas is present in the distended transverse colon without progression of small bowel distention. This pattern favors postoperative ileus over small bowel obstruction. Mild improvement compared to the CT 2 days ago.
--- NOTE | 2017-02-06 12:30 | PDOC43 ---
- Subjective Chief Complaint: Abd pain and nausea Eating a little bit but apatite is poor and feels full immediately. Abd pain is improving, passing flatus and one small bit of stool. - Objective Vital Signs Temperature 97.0 F 02/06/17 11:48 Pulse Rate 88 02/06/17 11:48 Respiratory Rate 18 02/06/17 11:48 Blood Pressure 168/91 02/06/17 11:48 O2 Saturation by Pulse Oximetry 98 02/06/17 11:48 Oxygen Delivery Method Room Air Oxygen Flow Rate 0 Intake and Output 02/05/17 02/06/17 02/07/17 06:59 06:59 06:59 Intake Total 469 3019 Output Total 700 1050 Balance -231 1969 General: Alert, Oriented x3, Cooperative, No Acute Distress HEENT: Mucous membr. moist/pink Lungs: Normal Air Movement, Other (slight exp wheezes) Cardiovascular: Regular Rate and Rhythm Abdomen: Soft, Tenderness (moderate on right), Normal Bowel Sounds, No Rebounding, No Involuntary Guarding, No Masses Extremities: Pulses Diminished but Palpable, No Edema Skin: Normal Color Neurological: Normal Speech Psych/Mental Status: Normal Mood Laboratory 02/06/17 06:10 02/06/17 06:10 02/06/17 06:10 RBC 3.38 L Estimated GFR 79 H Calcium 8.5 L Magnesium 1.4 L Total Protein 5.2 L Albumin 2.7 L Current Medications: Current meds reviewed in EMR. - Problems: Assessment/Plan (1) Ileus, postoperative Status: AcuteAssessment/Plan: Secondary to colectomy, appears to be slowly resolving. Continue current care and anticipate visit by Dr. Lora today. (2) Colon cancer Status: ChronicAssessment/Plan: S/P colectomy last week. Anticipate visit from Dr. Lora today. (3) Hyponatremia Status: AcuteAssessment/Plan: Due to diarrhea, vomiting and hypovolemia, improving with hydration. (4) Postoperative anemia due to acute blood loss Status: AcuteAssessment/Plan: secondary to surgery last week, stable. (5) Anxiety Status: ChronicAssessment/Plan: stable (6) GERD (gastroesophageal reflux disease) Status: ChronicAssessment/Plan: substitute pantoprazole for omeprazole (7) Hypertension Qualifiers: Hypertension type: essential hypertension Qualifier Code: (I10) Essential (primary) hypertension Status: ChronicAssessment/Plan: BP high today but usual meds had been held, follow with resumption of meds (8) Hypomagnesemia Status: AcuteAssessment/Plan: replace VTE Prophylaxis: enoxaparin Disposition: Anticipate rehab at [facility] in 1-2 days. (did not like [facility])
[2017-02-06] MEDS ORDERED: MAGNESIUM SULFATE 2 G/50 ML 2 G in Premix (Water) 50 ml 1 EACH IV ONE (13:00)
[2017-02-06] MEDS: PANTOPRAZOLE 40 MG TABLET DR PO SCH (13:10)
--- NOTE | 2017-02-06 14:31 | PDOC43 ---
- Subjective Subjective: Reports Flatus, Reports Pain Tolerable, Denies Nausea - Objective Vital Signs Temperature 97.0 F 02/06/17 11:48 Pulse Rate 88 02/06/17 11:48 Respiratory Rate 18 02/06/17 11:48 Blood Pressure 168/91 02/06/17 11:48 O2 Saturation by Pulse Oximetry 98 02/06/17 11:48 Oxygen Delivery Method Room Air Oxygen Flow Rate 0 Laboratory 02/06/17 06:10 02/06/17 06:10 02/06/17 06:10 RBC 3.38 L Estimated GFR 79 H Calcium 8.5 L Magnesium 1.4 L Total Protein 5.2 L Albumin 2.7 L Active Medication Orders Category Date Time Status Acetaminophen [Tylenol] Med 02/05/17 00:02 Active 650 mg DC Q6H PRN Amlodipine Besylate [Norvasc] Med 02/06/17 09:45 Active 5 mg PO QAM Benazepril HCl [Lotensin] Med 02/06/17 09:45 Active 20 mg PO DAILY Bisacodyl [Dulcolax] Med 02/05/17 00:02 Active 10 mg DC DAILY PRN Diphenhydramine HCl [Benadryl] Med 02/05/17 00:02 Active 25 - 50 mg IV Q6H PRN Enoxaparin Sodium [Lovenox] Med 02/05/17 00:15 Active 40 mg SUB-Q BEDTIME Famotidine [Pepcid] Med 02/05/17 00:15 Active 20 mg IV BID Fentanyl Med 02/05/17 00:00 Active 25 mcg IV Q2H PRN Lip [place] [Blistex] Med 02/05/17 00:02 Active 1 each TP PRN PRN Lorazepam [Ativan] Med 02/05/17 00:01 Active 1 mg IV Q8H PRN Magnesium Sulfate 2 G/50 ml [Magnesium Sulfate] 2 g Med 02/06/17 13:00 Active Premix (Water) 50 ml 1 each IV X1 Menthol/Cetylpyridinium [Cepacol] Med 02/05/17 00:02 Active 1 each PO PRN PRN Pantoprazole Sodium [Protonix] Med 02/06/17 12:30 Active 40 mg PO DAILY Sodium Chloride 0.9% 100 ml Med 02/05/17 00:02 Active IV PRN Sodium Chloride 0.9% Flush [Normal Saline 10ml Flush] Med 02/05/17 00:02 Active 10 - 50 ml IV PRN PRN Sodium Chloride 0.9% Flush [Normal Saline 10ml Flush] Med 02/05/17 17:00 Active 10 ml IV Q8HR Tramadol HCl [Ultram] Med 02/05/17 09:10 Active 50 mg PO QID PRN Intake and Output 02/05/17 02/06/17 02/07/17 06:59 06:59 06:59 Intake Total 469 3019 Output Total 700 1050 Balance -231 1969 General: Alert, Oriented x3 Abdomen: Soft, Non-Distended Wound: Well Approximated, No Drainage, No Erythema Psych/Mental Status: Normal Affect - Assessment/ Plan (1) Colon cancer Status: ChronicAssessment/ Plan: Ileus following surgery. Slowly improving. Can stop IVF. (2) Ileus, postoperative Status: AcuteAssessment/ Plan: Resolving. (3) Hypomagnesemia Status: AcuteAssessment/ Plan: Replace. Recheck tomorrow. (4) Postoperative anemia due to acute blood loss Status: AcuteAssessment/ Plan: Stable - Disposition [place] maybe tomorrow. Discussed with hospitalists and discharge planning.
[2017-02-06] MEDS: ENOXAPARIN SODIUM 40 MG/0.4 ML SYRINGE SUB-Q SCH (20:32)
[2017-02-07] MEDS: TRAMADOL HCL 50 MG TABLET PO PRN ×3 (02:49→13:47)
[2017-02-07 07:12] VITALS: BP 159/86
[2017-02-07] MEDS ORDERED: FAMOTIDINE 20 MG TABLET PO SCH (09:00)
[2017-02-07] MEDS: BENAZEPRIL HCL 10 MG TABLET PO SCH (09:40)
[2017-02-07] MEDS: PANTOPRAZOLE 40 MG TABLET DR PO SCH (09:40)
[2017-02-07] MEDS: AMLODIPINE BESYLATE 5 MG TABLET PO SCH (09:41)
[2017-02-07 09:48] LABS: I-STAT CREATININE 0.8 mg/dL (0.6-1.3)
--- NOTE | 2017-02-07 10:28 | PDOC43 ---
- Subjective Subjective: Reports Pain Tolerable, Reports Bowel Movement, Denies Nausea - Objective Vital Signs Temperature 97.6 F 02/07/17 07:11 Pulse Rate 84 02/07/17 09:34 Respiratory Rate 16 02/07/17 07:11 Blood Pressure 159/86 02/07/17 07:11 O2 Saturation by Pulse Oximetry 94 02/07/17 07:11 Oxygen Delivery Method Room Air Oxygen Flow Rate 0 Laboratory 02/07/17 06:15 Active Medication Orders Category Date Time Status Famotidine [Pepcid] Med 02/07/17 09:00 Active 20 mg PO BID Tramadol HCl [Ultram] Med 02/07/17 08:21 Active 100 mg PO QID PRN Intake and Output 02/06/17 02/07/17 02/08/17 06:59 06:59 06:59 Intake Total 2016 Output Total 900 Balance 1116 General: Alert, Oriented x3 Abdomen: Soft, Non-Distended Wound: Well Approximated, No Erythema Psych/Mental Status: Normal Affect - Assessment/ Plan (1) Colon cancer Status: ChronicAssessment/ Plan: Ileus following surgery seems to have resolved. Slowly improving. (2) Ileus, postoperative Status: AcuteAssessment/ Plan: Resolving. (3) Hypomagnesemia Status: AcuteAssessment/ Plan: Pending today. (4) Postoperative anemia due to acute blood loss Status: AcuteAssessment/ Plan: Stable - Disposition [place] maybe tomorrow. Discussed with hospitalists and discharge planning.
--- NOTE | 2017-02-07 11:42 | PDOC5 ---
ADMIT DATE: 02/06/17 DISCHARGE DATE: 02/07/17 ADMISSION DIAGNOSES: post-operative ileus PROCEDURES PERFORMED THIS HOSPITALIZATION: CT abd/pelvis CONSULTATIONS: OT/PT, appropriate to continue therapies at SNF HOSPITAL COURSE: This is a 86 year old who had a mariella-colectomy for cancer last week. She was discharged to [facility] but did not like it there and went home the next day. At home she developed increasing abdominal pain and loss of apatite. She returned to the ER where a CT was consistent with post-operative ileus. She was admitted, given IV fluids and electrolyte replacement. Her apatite improved and she continued to have flatus and bowel movements. On 02/07 she is doing well enough to return to SNF, this time at [facility]. - Exam Vital Signs Temperature 97.6 F 02/07/17 07:11 Pulse Rate 84 02/07/17 09:34 Respiratory Rate 16 02/07/17 07:11 Blood Pressure 159/86 02/07/17 07:11 O2 Saturation by Pulse Oximetry 94 02/07/17 07:11 Oxygen Delivery Method Room Air Oxygen Flow Rate 0 General: Alert, Oriented x3, Cooperative, No Acute Distress HEENT: Mucous membr. moist/pink Lungs: Clear to Auscultation Bilaterally Cardiovascular: Regular Rate and Rhythm Abdomen: Soft, Tenderness (mild), Normal Bowel Sounds, No Masses Extremities: Pulses Diminished but Palpable, No Edema Neurological: Normal Speech Psych/Mental Status: Normal Mood - Results Laboratory 02/07/17 06:15 - Problems:Assessment/Plan (1) Ileus, postoperative Status: AcuteAssessment/Plan: Secondary to colectomy, appears to be resolving. Discharge to SNF (2) Colon cancer Status: ChronicAssessment/Plan: S/P colectomy last week. f/u scheduled with Dr. Lora (3) Hyponatremia Status: AcuteAssessment/Plan: Due to diarrhea, vomiting and hypovolemia, improving with hydration. (4) Postoperative anemia due to acute blood loss Status: AcuteAssessment/Plan: secondary to surgery last week, stable. (5) Anxiety Status: ChronicAssessment/Plan: stable (6) GERD (gastroesophageal reflux disease) Status: ChronicAssessment/Plan: continue oral pantoprazole and famotidine (7) Hypertension Qualifiers: Hypertension type: essential hypertension Qualifier Code: (I10) Essential (primary) hypertension Status: ChronicAssessment/Plan: adequate control with resumption of usual meds (8) Hypomagnesemia Status: AcuteAssessment/Plan: replaced - Disposition: Disposition: [facility] - Discharge Plan Prescriptions: RX: Tramadol HCl [ULTRAM 50 MG TABLET (SHF)] 100 mg PO QID PRN #60 PRN Reason: Pain RX: Famotidine [PEPCID 20 MG TABLET (SHF)] 20 mg PO BID #60 RX: Pantoprazole Sodium [PROTONIX 40 MG TABLET (SHF)] 40 mg PO DAILY #30 Follow-Up: James Hill MD [Primary Care Provider] - Jan Lora MD [Staff Physician] - 02/09/17 12:00 pm Condition: Good Disposition: [facility]
[2017-02-07 14:17] LABS: CALCIUM 8.6 mg/dL (8.6-10.3); MAGNESIUM 1.7 mg/dL (1.9-2.7)
== END 2017-02-07 14:15 | DRG 394 ==
LOC: ED 19:30 → MS 21:59 → OBSVTOIN 02-06 12:30
PROVIDERS: ADMIT Internal Medicine Hematology & Oncology; ATTEND Internal Medicine Hematology & Oncology
DX: K91.3 Postprocedural intestinal obstruction (principal); E87.1 Hypo-osmolality and hyponatremia; C18.9 Malignant neoplasm of colon, unspecified; Y83.9 Surgical procedure, unspecified as the cause of abnormal reaction of the patient, or of later complication, without mention of misadventure at the time of the procedure; D50.0 Iron deficiency anemia secondary to blood loss (chronic); E86.1 Hypovolemia; F41.9 Anxiety disorder, unspecified; K21.9 Gastro-esophageal reflux disease without esophagitis; Z66 Do not resuscitate; I10 Essential (primary) hypertension

== ENCOUNTER 2017-02-23 18:12 | Emergency (ER) | payer MEDICARE | END 2017-02-23 19:44 | disposition home or self-care (01) | LOC: ED 18:12 | DX: K91.872 Postprocedural seroma of a digestive system organ or structure following a digestive system procedure (principal); I10 Essential (primary) hypertension; Z85.038 Personal history of other malignant neoplasm of large intestine; Y83.8 Other surgical procedures as the cause of abnormal reaction of the patient, or of later complication, without mention of misadventure at the time of the procedure; Y92.9 Unspecified place or not applicable ==